=== PATIENT | female | born 1955 | race Caucasian/White ===

== ENCOUNTER 2020-09-17 12:31 | Emergency (ER) | payer MEDICARE, SELFPAY ==
[2020-09-17 12:59] VITALS: BP 160/83; PULSE 61; RESP 16; TEMP 36.6; O2SAT 100; BMI 25.7
--- NOTE | 2020-09-17 13:06 | ECG_ITS ---
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 Measurements Intervals [place] Rate: 61 P: 82 VA: 161 QRS: 52 QRSD: 70 T: 58 QT: 374 QTc: 379 Interpretive Statements SINUS RHYTHM INTERPRETATION BASED ON A DEFAULT AGE OF 40 YEARS No previous ECG available for comparison Electronically Signed On 09-17-2020 20:28:58 CDT by Alejandro Kat M.D. [email or web address]habNav[facility].[employer]/store/NU/[id number] f
[2020-09-17 13:19] VITALS: BP 190/75; PULSE 66; RESP 15; O2SAT 99
--- NOTE | 2020-09-17 13:26 | PC.NURSE ---
ekg done and given to ED provider
[2020-09-17] MEDS: sodium chloride 0.9% 1,000 ML 999 ML IV (14:01)
[2020-09-17 14:09] LABS: Basophils # 0.1 10^3/uL (0.0-0.1); Eosinophils # 0.2 10^3/uL (0.0-0.8); Eosinophils % 2.2 %; Hematocrit 31.2 % (37.0-47.0); Hemoglobin 9.9 g/dL (11.5-15.3); Lymphocytes # 2.6 10^3/uL (0.8-4.8); Lymphocytes % 36.6 %; Mean Corpuscular HGB Conc 31.7 g/dL (30.0-36.0); Mean Corpuscular Hemoglobin 30.7 pg (28.0-34.0); Mean Corpuscular Volume 96.6 fL (81-99); Mean Platelet Volume 12.6 fL (7.4-10.4); Monocytes # 0.3 10^3/uL (0.2-0.9); Monocytes % 4.3 %; Neutrophils # 3.98 10^3/uL (1.8-7.7); Neutrophils % 55.6 %; Nucleated Red Blood Cells % 0 %; Platelet Count 206 10^3/cmm (130-400); Red Blood Count 3.23 10^6/uL (4.1-5.3); Red Cell Distribution Width 12.1 % (12.1-15.1); White Blood Count 7.2 10^3/uL (4.0-10.0)
[2020-09-17 14:15] LABS: Bilirubin Urine Neg (Negative); Blood Urine Neg (Negative); Glucose Urine UA Norm (Normal); Ketones Urine Negative (Negative); Leukocyte Esterase Urine Negative (Negative); Nitrate Urine Negative (Negative); Protein Urine 1+ (Negative); Urine Appearance Clear (CLEAR); Urine Color Yellow (Yellow); Urobilinogen Urine Norm (Negative); pH Urine 5 (5-7)
[2020-09-17 14:16] LABS: Add Urine Culture? No; Add Urine Microscopic? YES; Squamous Epithelial Cell Urine 0-4 /hpf (0-5)
[2020-09-17 14:17] LABS: Alanine Aminotransferase 8 U/L (0-33); Albumin Level 4.6 g/dL (3.5-5.2); Alkaline Phosphatase 118 IU/L (35-105); Anion Gap 16.1 (5-19); Aspartate Amino Transferase 15 U/L (0-32); Blood Urea Nitrogen 38 mg/dL (8-23); Calcium 9.3 mg/dL (8.5-10.5); Carbon Dioxide 25 mmol/L (22-29); Chloride 99 mmol/L (98-107); Globulin 3.2 g/dL (1.3-4.6); Glomerular Filtration Rate 22.3 mL/min (90-130); Glucose 119 mg/dL (65-115); Osmolality Calculated 290 mOsm/kg (285-295); Potassium 5.1 mmol/L (3.5-5.1); Sodium 135 mmol/L (136-145); Total Bilirubin 0.4 mg/dL (0.15-1.2); Total Protein 7.8 g/dL (6.6-8.7)
--- NOTE | 2020-09-17 14:24 | W.ED.RECABL ---
HPI - Recheck/Abnormal Lab/Rx General: Chief Complaint: Recheck/Abnormal Lab/Rx Stated Complaint: PT states critically high potassium Time Seen by Provider: 09/17/20 13:05 History of Present Illness: HPI narrative: The patient is a 65-year-old female with type 2 diabetes, chronic kidney disease, and hypertension. She comes to the ER complaining that she was called for lab work done yesterday with a potassium of 6.3. She says she has had occasional problems with potassium before related to her kidney disease. She does not know her baseline creatinine. She offers no complaints in the ED today and feels completely normal. Review of Systems General: Reports: 10 or more systems reviewed and unremarkable except in HPI and below Const: Denies: fatigue Eyes: Denies: change in vision, blurry vision or eye redness ENMT: Denies: throat pain, swelling of lips/tongue, ear or mastoid pain or nasal congestion Card: Denies: chest pain, palpitations, irregular heart rhythm, edema, dyspnea on exertion or orthopnea Resp: Denies: dyspnea, productive cough or non-productive cough GI: Denies: abdominal pain, diarrhea or GI cramping : Denies: flank pain, difficulty voiding, urinary frequency or urinary urgency Musc: Denies: neck pain, back pain, extremity pain, joint pain, joint redness, limited range of motion or muscle weakness Skin/Breast: Denies: rash, pruritus, erythema, skin pain or skin tenderness Neuro: Denies: headache(s), numbness in extremities, weakness in extremities, sensory changes, difficulty walking, dizziness, confusion or Slurred speech present Psych: Denies: anxiety or depression Endo: Denies: polyuria All/Imm: Denies: urticaria, throat swelling or tongue swelling Physical Exam Const: COMMON NORMALS: no acute distress, average body habitus, patient oriented x3, no limitations, healthy appearing, alert and well nourished GENERAL APPEARANCE: cooperative, comfortable, well kempt and well developed ORIENTATION/CONSCIOUSNESS: Yes awake, Yes oriented to person, Yes oriented to place and Yes oriented to time HENMT: COMMON NORMALS: normocephalic, external ears normal and Normal external nose present HEAD & SCALP: normal to inspection and normocephalic NOSE: Normal external nose present EXTERNAL EAR: Yes external ears normal MOUTH: Normal oral and palatal mucosa present THROAT: posterior oropharynx normal Eye: COMMON NORMALS: Equal, round and reactive pupils present and EOMs intact bilaterally GENERAL EYE: appearance normal, both eyes and all related structures PUPIL: Yes Equal, round and reactive pupils present Neck/C-Spine: COMMON NORMALS: full ROM, no lymphadenopathy, no meningeal signs and no JVD GENERAL: Yes normal visual inspection Lymph: LYMPHATIC: no lymphadenopathy noted Chest: COMMONS NORMALS: normal inspection of the chest and normal palpation of entire chest wall Resp: COMMON NORMALS: normal respiratory effort, No retractions, No use of accessory muscles, clear to auscultation bilaterally and percussion normal EFFORT & INSPECTION: Yes able to speak in complete sentences AUSCULTATION: clear to auscultation bilaterally PERCUSSION: percussion normal Cardio: COMMON NORMALS: no JVD, regular rate, regular rhythm, S1 normal heart sound present, S2 normal heart sound present and Peripheral pulses 2+ throughout RATE: regular rate RHYTHM: regular rhythm HEART SOUNDS: S1 normal heart sound present and S2 normal heart sound present PERIPHERAL PULSES: Peripheral pulses 2+ throughout GI: COMMON NORMALS: Normal to inspection, nondistended, normoactive bowel sounds present, Soft to palpation, non-tender and no masses INSPECTION: Yes normal to inspection PALPATION: Yes Soft to palpation : COMMON NORMALS: Yes no CVA tenderness BLADDER/KIDNEY EXAM: Yes no CVA tenderness Back/Pelvis: COMMON NORMALS: no CVA tenderness, thoracic and lumbar spine normal to inspection, no thoracic nor lumbar tenderness and thoraco-lumbar ROM normal Extremity: COMMON NORMALS: normal to inspection, full ROM, capillary refill normal, no joint enlargement and no pedal edema GENERAL: Yes normal exam except as noted Neuro: COMMON NORMALS: patient oriented x3, CN's II-XII intact bilaterally, moves all extremities, no focal motor deficits, no sensory deficits noted and gait normal SENSORIUM/ORIENTATION: Yes alert, Yes oriented to person, Yes oriented to place and Yes oriented to time MENINGEAL SIGNS: Yes no meningeal signs Psych: COMMON NORMALS: mental status grossly normal, Normal thought process present, cooperative, normal affect and speech normal APPEARANCE: Yes well kempt ATTITUDE: Yes calm SPEECH: Yes normal speech THOUGHT PROCESS: Normal thought process present Skin: COMMON NORMALS: no rashes or lesions noted GENERAL SKIN EXAM: no rashes or lesions noted Course Vital Signs: Vital signs: Vital Signs Temperature 97.9 F 09/17/20 12:59 Pulse Rate 66 09/17/20 13:19 Respiratory Rate 15 09/17/20 13:19 Blood Pressure 190/75 09/17/20 13:19 Pulse Oximetry 99 09/17/20 13:19 MDM - Recheck/Abnormal Lab/Rx MDM Narrative: Medical decision making narrative: The patient came in for reevaluation of outpatient lab work with potassium of 6.3. Her repeat potassium here today is 5.1 which is normal. BUN 38 and creatinine 2.2. She received nearly a liter of IV fluids. Recommend she get it rechecked as she does not know her baseline creatinine and discussed with her primary care physician in a few days. She knows she has chronic kidney disease and follows up regularly. Also chronic anemia and I told her her systolic has been in the 160s here. She does get nervous about being in the hospital. Recommended she check her blood pressures at home and take it to her primary care physician. She says she will do so. ER with worsening symptoms at any time. Lab Data: Labs: Lab Results 09/17/20 09/17/20 09/17/20 Range/Units 13:20 13:45 14:00 WBC 7.2 (4.0-10.0) 10^3/ uL RBC 3.23 L (4.1-5.3) 10^6/u L Hgb 9.9 L (11.5-15.3) g/dL Hct 31.2 L (37.0-47.0) % MCV 96.6 (81-99) fL MCH 30.7 (28.0-34.0) pg MCHC 31.7 (30.0-36.0) g/dL RDW 12.1 (12.1-15.1) % Plt Count 206 (130-400) 10^3/c mm MPV 12.6 H (7.4-10.4) fL Neut % (Auto) 55.6 % Lymph % (Auto) 36.6 % [place] % (Auto) 4.3 % Eos % (Auto) 2.2 % Baso % (Auto) 1.0 % Neut # (Auto) 3.98 (1.8-7.7) 10^3/u L Lymph # (Auto) 2.6 (0.8-4.8) 10^3/u L [place] # (Auto) 0.3 (0.2-0.9) 10^3/u L Eos # (Auto) 0.2 (0.0-0.8) 10^3/u L Baso # (Auto) 0.1 (0.0-0.1) 10^3/u L Nucleated RBC % (a uto) 0 % Nucleated RBCs # 0.0 /100WBC Sodium 135 L (136-145) mmol/L Potassium 5.1 (3.5-5.1) mmol/L Chloride 99 (98-107) mmol/L Carbon Dioxide 25 (22-29) mmol/L Anion Gap 16.1 (5-19) BUN 38 H (8-23) mg/dL Creatinine 2.2 H (0.5-0.9) mg/dL GFR Calculation 22.3 L (90-130) mL/min Glucose 119 H (65-115) mg/dL Calculated Osmolal ity 290 (285-295) mOsm/k g Calcium 9.3 (8.5-10.5) mg/dL Total Bilirubin 0.4 (0.15-1.2) mg/dL AST 15 (0-32) U/L ALT 8 (0-33) U/L Alkaline Phosphata se 118 H (35-105) IU/L Total Protein 7.8 (6.6-8.7) g/dL Albumin 4.6 (3.5-5.2) g/dL Globulin 3.2 (1.3-4.6) g/dL Urine Color Yellow (Yellow) Urine Appearance Clear (CLEAR) Urine pH 5 (5-7) Ur Specific Gravit y 1.010 (1.005-1.030) Urine Protein 1+ H (Negative) Urine Glucose (UA) Norm (Normal) Urine Ketones Negative (Negative) Urine Blood Neg (Negative) Urine Nitrate Negative (Negative) Urine Bilirubin Neg (Negative) Urine Urobilinogen Norm (Negative) mg/dL Ur Leukocyte Genny ase Negative (Negative) Urine RBC None (0-2) /hpf Urine WBC None (0-5) /hpf Ur Squamous Epith Cells 0-4 H (0-5) /hpf Amorphous Sediment Not Reportable Urine Bacteria None (NONE) /hpf Discharge Plan Discharge Patient Disposition: Home Clinical Impression: CKD (chronic kidney disease), Anemia Condition: Stable Discharge Orders: Discharge ED (Routine); Ordered 09/17/20 Ordered By: Chapin Kyle Discharge Diet: Advance as tolerated Discharge Activity: Resume usual activity Patient Instructions: Anemia, Chronic Kidney Disease (ED), Opioid Safety Activity Restrictions/Additional Instructions: Your potassium here in the ER is 5.1 which is normal. It is likely the outpatient lab work you had done yesterday where the potassium was 6.3 was incorrect as the repeat today was normal. Please follow-up with your doctor in a few days to discuss further and also monitor your chronic kidney disease and chronic anemia. Return to the ER with worsening symptoms at any time. Coding Level of Care Code ED C D Area Supervisor for Jessi Lau
[2020-09-17 14:37] VITALS: BP 170/56; PULSE 56; RESP 15; O2SAT 100
[2020-09-17 14:40] VITALS: BP 170/56; PULSE 59; O2SAT 100
== END 2020-09-17 14:40 | disposition home or self-care (01) ==
LOC: ER 15:03
PROVIDERS: Emergency Provider Family Medicine
DX: N18.9 Chronic kidney disease, unspecified (principal); D64.9 Anemia, unspecified; E11.9 Type 2 diabetes mellitus without complications; I10 Essential (primary) hypertension
CPT/HCPCS: 36415; 80053; 81001; 85025; 93005; 96360; 99284; J7030

== ENCOUNTER → 2022-02-17 14:34 | Outpatient (BNVA) | payer MEDICARE, SELFPAY | PROVIDERS: PCP Family Medicine; Visit Provider Family Medicine | DX: E11.9 Type 2 diabetes mellitus without complications (principal); I10 Essential (primary) hypertension; E78.5 Hyperlipidemia, unspecified | CPT/HCPCS: 80053; 80061; 83036; 85025 ==

== ENCOUNTER → 2022-09-28 10:15 | Outpatient (BNVA) | payer MEDICARE, SELFPAY | PROVIDERS: PCP Family Medicine; Visit Provider Family Medicine | DX: E11.9 Type 2 diabetes mellitus without complications (principal); I10 Essential (primary) hypertension; E78.5 Hyperlipidemia, unspecified | CPT/HCPCS: 80053; 80061; 83036; 86140 ==

== ENCOUNTER 2023-04-01 19:10 | Observation (INO) | payer MEDICARE, OTHER, SELFPAY ==
[2023-04-01 19:11] VITALS: BP 235/99; PULSE 66; RESP 18; TEMP 36.7; O2SAT 100
--- NOTE | 2023-04-01 19:22 | ECG_ITS ---
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 Measurements Intervals [place] Rate: 61 P: 89 WI: 150 QRS: 66 QRSD: 78 T: 77 QT: 375 QTc: 378 Interpretive Statements SINUS RHYTHM No previous ECG available for comparison Electronically Signed On 04-03-2023 7:56:21 [employer] by Alejandro Kat M.D. [id number] f
[2023-04-01 19:32] LABS: Glucose Point of Care 248 mg/dL (70-110)
[2023-04-01 19:34] VITALS: PULSE 63; RESP 16; O2SAT 97
--- NOTE | 2023-04-01 19:38 | XRR_ITS ---
PROCEDURE INFORMATION: Exam: XR Chest Exam date and time: 04/01/2023 8:03 PM Age: 67 years old Clinical indication: Other: Hypertensive; Additional info: HTN TECHNIQUE: Imaging protocol: Radiologic exam of the chest. Views: 1 view. COMPARISON: CT angio headneck* [id number] 04/01/2023 8:02 PM FINDINGS: Lungs: Unremarkable. No consolidation. Pleural spaces: Unremarkable. No pleural effusion. No pneumothorax. Heart/Mediastinum: Unremarkable. No cardiomegaly. Bones/joints: Unremarkable. XR/XR chest 1V portable [id number] IMPRESSION: No acute findings.
--- NOTE | 2023-04-01 19:38 | CTR_ITS ---
PROCEDURE INFORMATION: Exam: CTA Head With Contrast, Arteriography Exam date and time: 04/01/2023 8:02 PM Age: 67 years old Clinical indication: Stroke-like symptoms; Speech disturbance; Denis lower extremity weakness; Additional info: Stroke symptoms TECHNIQUE: Imaging protocol: Computed tomographic angiography of the head with contrast. Exam focused on the arteries. 3D rendering (Not supervised by radiologist): MIP and/or 3D reconstructed images were created by the technologist. Radiation optimization: All CT scans at this facility use at least one of these dose optimization techniques: automated exposure control; mA and/or kV adjustment per patient size (includes targeted exams where dose is matched to clinical indication); or iterative reconstruction. Contrast material: OMNI 350; Contrast volume: 100 ml; Contrast route: INTRAVENOUS (IV); COMPARISON: CT head thrombolytic [id number] 04/01/2023 7:58 PM RADIATION DOSE METRICS: Total DLP (mGy-cm): 417.63 FINDINGS: ANTERIOR CIRCULATION: Right internal carotid artery: Right internal carotid atherosclerosis with moderate stenosis distally. Right middle cerebral artery: No occlusion or significant stenosis. No aneurysm. Right anterior cerebral artery: No occlusion or significant stenosis. No aneurysm. Left internal carotid artery: Atherosclerosis left internal carotid with mild stenosis. Left middle cerebral artery: No occlusion or significant stenosis. No aneurysm. Left anterior cerebral artery: No occlusion or significant stenosis. No aneurysm. POSTERIOR CIRCULATION: Right vertebral artery: No occlusion or significant stenosis. No aneurysm. Left vertebral artery: No occlusion or significant stenosis. No aneurysm. Basilar artery: No occlusion or significant stenosis. No aneurysm. Right posterior cerebral artery: No occlusion or significant stenosis. No aneurysm. Left posterior cerebral artery: There is high-grade stenosis of the left RETAIL EVENT ASSISTANT at the P1/P2 segment junction spanning 7 mm in length with patent distal vessel. Left posterior communicating artery: 2 mm probable infundibulum at the left posterior communicating artery origin on series 5, image 203 more likely than small aneurysm. Brain: No definite mass, mass effect, or midline shift. Cerebral ventricles: No ventriculomegaly. Bones/joints: Unremarkable. No acute fracture. Soft tissues: Unremarkable. PROCEDURE INFORMATION: Exam: CTA Neck With Contrast Exam date and time: 04/01/2023 8:02 PM Age: 67 years old Clinical indication: Stroke-like symptoms; Speech disturbance; Denis lower extremity weakness; Additional info: Stroke symptoms TECHNIQUE: Imaging protocol: Computed tomographic angiography of the neck with contrast. Exam focused on the cervical segments of the vasculature. 3D rendering (Not supervised by radiologist): MIP and/or 3D reconstructed images were created by the technologist. Radiation optimization: All CT scans at this facility use at least one of these dose optimization techniques: automated exposure control; mA and/or kV adjustment per patient size (includes targeted exams where dose is matched to clinical indication); or iterative reconstruction. Contrast material: OMNI 350; Contrast volume: 100 ml; Contrast route: INTRAVENOUS (IV); COMPARISON: CT head thrombolytic [id number] 04/01/2023 7:58 PM RADIATION DOSE METRICS: Total DLP (mGy-cm): 417.63 FINDINGS: Right common carotid artery: No stenosis. No dissection or occlusion. Right internal carotid artery: Atherosclerosis proximal right internal carotid artery with 30% stenosis. Right external carotid artery: No occlusion or stenosis of the origin. Left common carotid artery: No stenosis. No dissection or occlusion. Left internal carotid artery: Atherosclerotic changes proximal left internal carotid artery are seen with 30% stenosis. Left external carotid artery: No occlusion or stenosis of the origin. Right vertebral artery: No stenosis. No dissection or occlusion. Left vertebral artery: No stenosis. No dissection or occlusion. Soft tissues: Normal. No significant soft tissue swelling. Bones/joints: No acute fracture. CT/CT angio headneck* [id number] IMPRESSION: 1. There is focal high-grade stenosis of the left RETAIL EVENT ASSISTANT at the P1/P2 segment junction spanning 7 mm in length. 2. There is a 2 mm probable infundibulum more likely than small aneurysm at the left posterior communicating artery origin present. IMPRESSION: No occlusion or significant stenosis. REFERENCES: NASCET CRITERIA. The degree of stenosis in the cervical segment of the internal carotid artery is based on NASCET criteria. Normal is no stenosis. Mild is less than 50% stenosis. Moderate is 50-69% stenosis. Severe is 70% to 99% stenosis. Total occlusion is no detectable patent lumen.
--- NOTE | 2023-04-01 19:38 | CTR_ITS ---
PROCEDURE INFORMATION: Exam: CT Head Without Contrast Exam date and time: 04/01/2023 7:58 PM Age: 67 years old Clinical indication: Stroke-like symptoms; Speech disturbance; Denis lower extremity weakness; Additional info: C/O aphasia and slurred speech with bilateral lower extremity weakness. TECHNIQUE: Imaging protocol: Computed tomography of the head without contrast. Radiation optimization: All CT scans at this facility use at least one of these dose optimization techniques: automated exposure control; mA and/or kV adjustment per patient size (includes targeted exams where dose is matched to clinical indication); or iterative reconstruction. Other technique: STROKE PROTOCOL was implemented. COMPARISON: No relevant prior studies available. RADIATION DOSE METRICS: Total DLP (mGy-cm): 210 FINDINGS: Brain: No acute infarct. No hemorrhage. Involutional changes of the brain, commensurate with age. No mass effect. Chronic lacunar type infarct present in the left kenneth. Cerebral ventricles: No ventriculomegaly. Paranasal sinuses: No significant inflammation. No fluid levels. Mastoid air cells: Visualized mastoid air cells are well aerated. Orbital cavities: Probable left orbital lid weight. Bones/joints: Unremarkable. No acute fracture. Soft tissues: Unremarkable. CT/CT head thrombolytic [id number] IMPRESSION: No acute intracranial abnormality. ASSESSMENT: ASPECTS (Danielle Stroke Program Early CT Score) is 10.
--- NOTE | 2023-04-01 19:40 | W.ED.NEUROSD ---
HPI - Neuro Symptoms/Deficit General: Chief Complaint: Neuro Symptoms/Deficit Stated Complaint: possible stoke Time Seen by Provider: 04/01/23 19:19 History of Present Illness: 67-year-old female evidently with a history of diabetes and hypertension, untreated, presenting with left-sided facial droop dysarthria and trouble swallowing. She awoke with symptoms at 5 AM this morning. She went to bed at 10 PM last night. No significant weakness in extremities. No changes in sensation. Her vision is blurry, but she had an injection in her eye on . She believes that her eye blurriness has more to do with that. No expressive aphasia. She has not been ill recently otherwise Associated symptoms: Deny chest pain, headache(s), nausea or vomiting Review of Systems Const: Denies: fever(s), chills or body aches Eyes: Reports: blurry vision; Denies: change in vision Card: Denies: chest pain or palpitations Resp: Denies: dyspnea, productive cough, non-productive cough or wheezing GI: Denies: abdominal pain, nausea, vomiting, diarrhea or hematochezia : Denies: difficulty voiding Skin/Breast: Denies: rash Neuro: Reports: dizziness and Slurred speech present; Denies: headache(s), numbness in extremities, weakness in extremities, sensory changes or confusion PFSH ED PFSH: Medical History Hyperlipidemia Hypertension Diabetes mellitus type 2, controlled NIH stroke score NIHSS: Level Of Consciousness - 1a: 0 Level Of Consciousness Questions - 1b: Both Correct Level Of Consciousness Commands - 1c: Both Correct Best Gaze - 2: Normal Visual Ortiz - 3: No Visual Loss Facial Palsy - 4: Minor Paralysis Motor Arm Right - 5: No Drift Motor Arm Left - 5: No Drift Motor Leg Right - 6: No Drift Motor Leg Left - 6: No Drift Limb Ataxia - 7: Absent Sensory - 8: Normal Best Language - 9: No Aphasia Dysarthia - 10: Mild/Moderate Dysarthia Extinction And Inattention - 11: 0 Score: Total Score: 2 Physical Exam Const: COMMON NORMALS: alert GENERAL APPEARANCE: ill appearing (mildly) HENMT: COMMON NORMALS: normocephalic, hearing grossly normal bilaterally and Normal external nose present HEAD & SCALP: normocephalic FACE & SINUS: face not symmetric NOSE: Normal external nose present Eye: COMMON NORMALS: Equal, round and reactive pupils present and EOMs intact bilaterally PUPIL: Yes Equal, round and reactive pupils present Neck/C-Spine: GENERAL: Yes trachea midline Chest: CHEST: Yes Symmetrical chest wall rise Resp: COMMON NORMALS: normal respiratory effort, No use of accessory muscles and clear to auscultation bilaterally AUSCULTATION: clear to auscultation bilaterally Cardio: COMMON NORMALS: regular rate and regular rhythm RATE: regular rate RHYTHM: regular rhythm GI: COMMON NORMALS: Normal to inspection, nondistended, normoactive bowel sounds present Neuro: MARCUS COMA SCALE: document GCS findings [place] coma scale eye opening: Spontaneous [place] coma scale verbal response: Orientated Marcus coma scale motor response: Obey commands [place] coma scale total score: 15 SENSORIUM/ORIENTATION: Yes alert CRANIAL NERVES: Yes CN VII (facial) Laterality: left CN VII left: facial droop Course Vital Signs: Vital signs: Vital Signs Temperature 98.0 F 04/01/23 19:11 Pulse Rate 77 04/01/23 21:17 Respiratory Rate 20 H 04/01/23 21:17 Blood Pressure 178/67 04/01/23 21:17 Pulse Oximetry 100 04/01/23 21:17 Oxygen Delivery Me thod Room Air 04/01/23 19:34 MDM - Neuro Symptoms/Deficit Medical Decision Making 67-year-old female with left-sided facial droop, dysarthria, and trouble swallowing. She was very hypertensive on arrival, blood pressure 196/87 following 20 mg of hydralazine. She has untreated hypertension and diabetes. Head CT noncontrast is negative. CTA of the head and neck shows high-grade stenosis of the left OPERATING ROOM SPECIALIST at the P1 P2 segment that is 7 mm long, with a patent distal vessel. I spoke with neurology about this at [facility]. Usually, intervention cannot be well done to the posterior cerebral artery. Their recommendation is dual antiplatelet therapy for 90 days, and continuing stroke workup. Call out to hospitalist. Lab Data 04/01/23 19:27 04/01/23 19:27 Radiology Impressions Chest X-Ray 04/01/23 19:38 IMPRESSION: No acute findings. Head CT 04/01/23 19:38 IMPRESSION: No acute intracranial abnormality. ASSESSMENT: ASPECTS (Danielle Stroke Program Early CT Score) is 10. Head/Neck CTA 04/01/23 19:38 IMPRESSION: 1. There is focal high-grade stenosis of the left OPERATING ROOM SPECIALIST at the P1/P2 segment junction spanning 7 mm in length. 2. There is a 2 mm probable infundibulum more likely than small aneurysm at the left posterior communicating artery origin present. IMPRESSION: No occlusion or significant stenosis. REFERENCES: NASCET CRITERIA. The degree of stenosis in the cervical segment of the internal carotid artery is based on NASCET criteria. Normal is no stenosis. Mild is less than 50% stenosis. Moderate is 50-69% stenosis. Severe is 70% to 99% stenosis. Total occlusion is no detectable patent lumen. Laboratory Results WBC 7.03 10^3/uL (3.29-11.43) 04/01/23 19: RBC 3.47 10^6/uL (3.85-5.65) L 04/01/23 19: Hgb 10.70 g/dL (11.27-16.99) L 04/01/23 19: Hct 33.3 % (36-47) L 04/01/23 19: MCV 96.0 fl (85-98) 04/01/23 19: MCH 30.8 pg (27-33) 04/01/23 19: MCHC 32.1 g/dL (30-55) 04/01/23 19: RDW 12.8 % (12.1-15.1) 04/01/23 19: Plt Count 242 10^3/cmm (157-399) 04/01/23 19: MPV 13.0 fL (7.4-10.4) H 04/01/23 19: Neut % (Auto) 65.7 % 04/01/23 19: Lymph % (Auto) 26.6 % 04/01/23 19: [place] % (Auto) 4.7 % 04/01/23 19: Eos % (Auto) 2.0 % 04/01/23 19: Baso % (Auto) 0.7 % 04/01/23 19: Neut # (Auto) 4.62 10^3/uL (1.8-7.7) 04/01/23 19: Lymph # (Auto) 1.9 10^3/uL (0.8-4.8) 04/01/23 19: Gray # (Auto) 0.3 10^3/uL (0.2-0.9) 04/01/23 19: Eos # (Auto) 0.1 10^3/uL (0.0-0.8) 04/01/23: Baso # (Auto) 0.1 10^3/uL (0.0-0.1) 04/01/23 19: Nucleated RBC % (auto) 0 % 04/01/23: Nucleated RBCs # 0.0 /100WBC 04/01/23: PT 12.80 SECONDS (12.1-14.9) 04/01/23 19: INR 0.93 (0.8-1.2) 04/01/23: APTT 26.5 SECONDS (23.9-36.7) 04/01/23 19: Sodium 142 mmol/L (136-145) 04/01/23 19: Potassium 4.7 mmol/L (3.5-5.1) 04/01/23: Chloride 106 mmol/L (98-107) 04/01/23: Carbon Dioxide 26 mmol/L (22-29) 04/01/23 19: Anion Gap 14.7 (5-19) 04/01/23 19: BUN 28 mg/dL (8-23) H 04/01/23 19: Creatinine 1.6 mg/dL (0.5-0.9) H 04/01/23 19: GFR Calculation 32.1 mL/min (90-130) L 04/01/23 19: Glucose 243 mg/dL (65-115) H 04/01/23 19: POC Glucose 248 mg/dL (70-110) H 04/01/23 19: Calculated Osmolality 308 mOsm/kg (285-295) H 04/01/23 19: Calcium 9.3 mg/dL (8.5-10.5) 04/01/23 19: Total Bilirubin 0.2 mg/dL (0.15-1.2) 04/01/23 19:27 AST 12 U/L (0-32) 04/01/23 19:27 ALT 9 U/L (0-33) 04/01/23 19:27 Alkaline Phosphatase 102 U/L (35-105) 04/01/23 19:27 Total Protein 7.4 g/dL (6.6-8.7) 04/01/23 19:27 Albumin 4.1 g/dL (3.5-5.2) 04/01/23 19:27 Globulin 3.3 g/dL (1.3-4.6) 04/01/23 19:27 All radiology interpretation(s) finalized by discharge Discharge Plan Discharge Patient Disposition: Admitted As Inpatient Admit Provider: Alyson Bourgeois Clinical Impression: Cerebrovascular accident Condition: Stable Coding Level of Care Code ED Computer Graphic Designer for Jessi Lau
[2023-04-01 19:50] LABS: Basophils # 0.1 10^3/uL (0.0-0.1); Basophils % 0.7 %; Eosinophils # 0.1 10^3/uL (0.0-0.8); Hematocrit 33.3 % (36-47); Lymphocytes # 1.9 10^3/uL (0.8-4.8); Lymphocytes % 26.6 %; Mean Corpuscular HGB Conc 32.1 g/dL (30-55); Mean Corpuscular Hemoglobin 30.8 pg (27-33); Monocytes # 0.3 10^3/uL (0.2-0.9); Monocytes % 4.7 %; Neutrophils # 4.62 10^3/uL (1.8-7.7); Neutrophils % 65.7 %; Nucleated Red Blood Cells % 0 %; Platelet Count 242 10^3/cmm (157-399); Red Blood Count 3.47 10^6/uL (3.85-5.65); Red Cell Distribution Width 12.8 % (12.1-15.1); White Blood Count 7.03 10^3/uL (3.29-11.43)
[2023-04-01 19:53] LABS: INR 0.93 (0.8-1.2)
[2023-04-01 19:54] LABS: Partial Thromboplastin Time 26.5 SECONDS (23.9-36.7)
[2023-04-01 20:03] LABS: Alanine Aminotransferase 9 U/L (0-33); Albumin Level 4.1 g/dL (3.5-5.2); Alkaline Phosphatase 102 U/L (35-105); Anion Gap 14.7 (5-19); Aspartate Amino Transferase 12 U/L (0-32); Blood Urea Nitrogen 28 mg/dL (8-23); Calcium 9.3 mg/dL (8.5-10.5); Carbon Dioxide 26 mmol/L (22-29); Chloride 106 mmol/L (98-107); Globulin 3.3 g/dL (1.3-4.6); Glomerular Filtration Rate 32.1 mL/min (90-130); Glucose 243 mg/dL (65-115); Osmolality Calculated 308 mOsm/kg (285-295); Potassium 4.7 mmol/L (3.5-5.1); Sodium 142 mmol/L (136-145); Total Bilirubin 0.2 mg/dL (0.15-1.2); Total Protein 7.4 g/dL (6.6-8.7)
[2023-04-01] MEDS: iohexol 350 mg/mL 500 mL Btl (per mL) IV (20:05)
[2023-04-01] MEDS: hyDRALAzine 20 mg/mL INJ 1 mL IVP (20:59)
[2023-04-01 21:17] VITALS: BP 178/67; PULSE 77; RESP 20; O2SAT 100
[2023-04-01 21:23] LABS: Glucose Point of Care 212 mg/dL (70-110)
[2023-04-01 21:33] LABS: Urine Appearance Clear (CLEAR); Urine Color Colorless (Yellow)
[2023-04-01 21:34] LABS: Add Urine Microscopic? YES; Bilirubin Urine Neg (Negative); Blood Urine Trace (Negative); Glucose Urine UA 2+ (Normal); Ketones Urine 1+ (Negative); Leukocyte Esterase Urine Negative (Negative); Nitrate Urine Negative (Negative); Protein Urine 3+ (Negative); Urobilinogen Urine Norm (Negative); pH Urine 7 (5-7)
[2023-04-01 21:35] LABS: Bacteria Urine TRACE /hpf; Mucus Urine 2+ /hpf; RBC Urine 0-4 /hpf (0-2); Squamous Epithelial Cell Urine 0-4 /hpf (0-5); WBC Urine 0-4 /hpf (0-5)
[2023-04-01 21:36] LABS: Amphetamines Screen Urine Negative (Negative); Barbiturates Screen Urine Negative (Negative); Benzodiazepines Screen Urine Negative (Negative); Cocaine Screen Urine Negative (Negative); Opiate Screen Urine Negative (Negative); PCP Screen Urine Negative (Negative); THC Screen Urine Negative (Negative)
[2023-04-01 21:49] VITALS: BMI 25.9
--- NOTE | 2023-04-01 21:59 | PM.HP ---
Providers/Chief Complaint Admitting Physician: Alyson Bourgeois MD Primary Care Provider: Jonnathan Mckeon MD Chief Complaint: possible stoke History of Present Illness Lesley Hair is a 67 year old female with a past medical history of diabetes and hypertension, declined treatment previously for the same, presented to the emergency room today with left-sided facial droop dysarthria and dysphagia. Patient was in her normal state of health when she went to bed last night, when she woke up at 5 AM is when she first noticed the symptoms. She does report blurring of vision as well, however she has been receiving injectables into her eye recently, I am uncertain of the indication at this present time. They do not appear to be any motor deficits involving her extremities at this present time. She was hypertensive on admission with blood pressure of 196/87 for which she received 20 mg of IV hydralazine. CT of the head was negative for acute intracranial events. CTA of the head and neck showed high-grade stenosis of the left POLITICAL AIDE. Case was discussed by ER physician with neurology at [facility], no intervention recommended given involvement of the posterior system. Recommendation was to start patient on dual antiplatelet therapy and admit for neuro observation. Review of Systems General: Reports: 10 or more systems reviewed and unremarkable except in HPI and below Const: Denies: fever(s), chills or body aches Eyes: Denies: change in vision, blurry vision or photophobia ENMT: Reports: hoarseness; Denies: throat pain, enlarged tonsils, odynophagia or nasal congestion Card: Denies: chest pain, palpitations, irregular heart rhythm, edema, swelling of feet/ankles, lightheadedness, pre-syncope, dyspnea on exertion or orthopnea Resp: Denies: dyspnea, productive cough, non-productive cough, wheezing, stridor, pain on inspiration, change in phlegm color, hemoptysis or chest congestion GI: Denies: abdominal pain, nausea, vomiting, hematemesis, coffee ground emesis, dysphagia, heartburn, diarrhea, constipation, GI cramping, change in stool character, hematochezia or melena : Denies: flank pain, difficulty voiding, dysuria, urinary frequency, urinary urgency, urinary hesitancy or hematuria Musc: Denies: neck pain, back pain, extremity pain, joint swelling, joint warmth or deformity Neuro: Denies: headache(s), numbness in extremities, weakness in extremities, sensory changes, difficulty walking, frequent falls, dizziness, vertigo, behavioral changes, Slurred speech present or seizure-like activity Psych: Denies: anxiety, depression, suicidal ideation or homicidal ideation Endo: Denies: polyuria, polydipsia, tired all the time, cold intolerance or hot flashes [place]/Lymph: Denies: easy bruising or easy bleeding Medications/Allergies Home Medications Medication Instructions Recorded Confirmed Last Taken Type blood sugar diagnostic (OneTouch #50 ea 11/03/22 Unknown Rx Ultra Test strips) Allergies Allergy/AdvReac Type Severity Reaction Status Date / Time No Known Allergies Allergy Verified 04/01/23 19:15 PFSH Acute PFSH: Medical History Hyperlipidemia Hypertension Diabetes mellitus type 2, controlled Vitals/I&O/Wt Last Vital Signs Temp 98.0 F 04/01/23 19:11 Pulse 77 04/01/23 21:17 Resp 20 H 04/01/23 21:17 BP 178/67 04/01/23 21:17 Pulse Ox 100 04/01/23 21:17 O2 Del Method Room Air 04/01/23 19:34 Weight last 48 hrs Weight 80.286 kg Physical Exam Narrative: General: No acute distress, AO x3 HEENT: PERRLA, pupils bilaterally equal and reactive, pallors not present Chest: Normal vesicular breath sounds, no added sounds, equal good air entry bilaterally CVS: S1-S2 regular, no murmurs, no tachycardia, no gallops, no rubs Abdomen: Soft, nontender, no organomegaly, bowel sounds present Neuro: NIH stroke scale of 2 dysarthria, facial asymmetry Data 04/01/23 19:27 04/01/23 19:27 Other Labs: Radiology Impressions Chest X-Ray 04/01/23 19:38 IMPRESSION: No acute findings. Head CT 04/01/23 19:38 IMPRESSION: No acute intracranial abnormality. ASSESSMENT: ASPECTS ([place] Stroke Program Early CT Score) is 10. Head/Neck CTA 04/01/23 19:38 IMPRESSION: 1. There is focal high-grade stenosis of the left POLITICAL AIDE at the P1/P2 segment junction spanning 7 mm in length. 2. There is a 2 mm probable infundibulum more likely than small aneurysm at the left posterior communicating artery origin present. IMPRESSION: No occlusion or significant stenosis. REFERENCES: NASCET CRITERIA. The degree of stenosis in the cervical segment of the internal carotid artery is based on NASCET criteria. Normal is no stenosis. Mild is less than 50% stenosis. Moderate is 50-69% stenosis. Severe is 70% to 99% stenosis. Total occlusion is no detectable patent lumen. Laboratory Results WBC 7.03 10^3/uL (3.29-11.43) 04/01/23 19: RBC 3.47 10^6/uL (3.85-5.65) L 04/01/23: Hgb 10.70 g/dL (11.27-16.99) L 04/01/23: Hct 33.3 % (36-47) L 04/01/23: MCV 96.0 fl (85-98) 04/01/23: MCH 30.8 pg (27-33) 04/01/23: MCHC 32.1 g/dL (30-55) 04/01/23: RDW 12.8 % (12.1-15.1) 04/01/23: Plt Count 242 10^3/cmm (157-399) 04/01/23: MPV 13.0 fL (7.4-10.4) H 04/01/23: Neut % (Auto) 65.7 % 04/01/23: Lymph % (Auto) 26.6 % 04/01/23 19: [place] % (Auto) 4.7 % 04/01/23: Eos % (Auto) 2.0 % 04/01/23: Baso % (Auto) 0.7 % 04/01/23 Neut # (Auto) 4.62 10^3/uL (1.8-7.7) 04/01/23: Lymph # (Auto) 1.9 10^3/uL (0.8-4.8) 04/01/23: [place] # (Auto) 0.3 10^3/uL (0.2-0.9) 04/01/23 19:27 Eos # (Auto) 0.1 10^3/uL (0.0-0.8) 04/01/23 19: Baso # (Auto) 0.1 10^3/uL (0.0-0.1) 04/01/23 19: Nucleated RBC % (auto) 0 % 04/01/23: Nucleated RBCs # 0.0 /100WBC 04/01/23 19: PT 12.80 SECONDS (12.1-14.9) 04/01/23 19: INR 0.93 (0.8-1.2) 04/01/23 19: APTT 26.5 SECONDS (23.9-36.7) 04/01/23 19: Sodium 142 mmol/L (136-145) 04/01/23 19: Potassium 4.7 mmol/L (3.5-5.1) 04/01/23 19: Chloride 106 mmol/L (98-107) 04/01/23 19: Carbon Dioxide 26 mmol/L (22-29) 04/01/23 19: Anion Gap 14.7 (5-19) 04/01/23 19: BUN 28 mg/dL (8-23) H 04/01/23 19: Creatinine 1.6 mg/dL (0.5-0.9) H 04/01/23 19: GFR Calculation 32.1 mL/min (90-130) L 04/01/23 19: Glucose 243 mg/dL (65-115) H 04/01/23 19: POC Glucose 212 mg/dL (70-110) H 04/01/23 21:21 Estimat Average Glucose 209 04/01/23 19: Hemoglobin A1c 8.9 % (4.0-6.0) H 04/01/23 19: Calculated Osmolality 308 mOsm/kg (285-295) H 04/01/23 19: Calcium 9.3 mg/dL (8.5-10.5) 04/01/23 19:27 Total Bilirubin 0.2 mg/dL (0.15-1.2) 04/01/23 19: AST 12 U/L (0-32) 04/01/23 19:27 ALT 9 U/L (0-33) 04/01/23 19: Alkaline Phosphatase 102 U/L (35-105) 04/01/23 19: Total Protein 7.4 g/dL (6.6-8.7) 04/01/23 19: Albumin 4.1 g/dL (3.5-5.2) 04/01/23 19: Globulin 3.3 g/dL (1.3-4.6) 04/01/23 19: Triglycerides 116 mg/dL (0-150) 04/01/23 19: Cholesterol 237 mg/dL (0-200) H 04/01/23: LDL Cholesterol, Calc 140 mg/dL (50-129) H 04/01/23: HDL Cholesterol 74 mg/dL (60-100) 04/01/23: LDL/HDL Ratio 1.89 RATIO (0.00-3.22) 04/01/23: Cholesterol/HDL Ratio 3.20 mg/dL (0.0-4.40) 04/01/23 19: Urine Color Colorless (Yellow) 04/01/23 21:21 Urine Appearance Clear (CLEAR) 04/01/23 21:21 Urine pH 7 (5-7) 04/01/23 21:21 Ur Specific [place] 1.000 (1.005-1.030) L 04/01/23 21: Urine Protein 3+ (Negative) H 04/01/23 21:21 Urine Glucose (UA) 2+ (Normal) H 04/01/23 21:21 Urine Ketones 1+ (Negative) H 04/01/23 21:21 Urine Blood Trace (Negative) H 04/01/23 21:21 Urine Nitrate Negative (Negative) 04/01/23 21:21 Urine Bilirubin Neg (Negative) 04/01/23 21: Urine Urobilinogen Norm mg/dL (Negative) 04/01/23 21:21 Ur Leukocyte Esterase Negative (Negative) 04/01/23 21:21 Urine RBC 0-4 /hpf (0-2) H 04/01/23 21:21 Urine WBC 0-4 /hpf (0-5) H 04/01/23 21:21 Ur Squamous Epith Cells 0-4 /hpf (0-5) H 04/01/23 21:21 Amorphous Sediment Not Reportable 04/01/23 21:21 Urine Bacteria Trace /hpf (NONE) 04/01/23 21:21 Urine Mucus 2+ /hpf 04/01/23 21:21 Urine Opiates Screen Negative ng/mL (Negative) 04/01/23 21:21 Ur Barbiturates Screen Negative ng/mL (Negative) 04/01/23 21:21 Ur Phencyclidine Scrn Negative ng/mL (Negative) 04/01/23 21:21 Ur Amphetamines Screen Negative ng/mL (Negative) 04/01/23 21:21 U Benzodiazepines Scrn Negative ng/mL (Negative) 04/01/23 21:21 Urine Cocaine Screen Negative ng/mL (Negative) 04/01/23 21:21 U Marijuana (THC) Screen Negative ng/mL (Negative) 04/01/23 21:21 A&P Assessment and plan (1) Cerebrovascular accident: Admit the patient to [facility] for close neuro monitoring She is not a tPA candidate due to onset of symptoms earlier this morning. Continue telemetry monitoring on the unit to evaluate for underlying arrhythmias. CT head unremarkable CTA head and neck focal high-grade stenosis of the left POLITICAL AIDE at the P1/P2 segment junction spanning 7 mm in length. Echocardiogram ordered and pending Start aspirin 81 mg daily, Plavix 75 mg daily, Atorvastatin 40 mg daily Check HbA1c and lipid panel for restratification Holding further doses of antihypertensives to allow for permissive hypertension PT OT speech therapy assessment Plan DVT prophylaxis: SCDs only, overall low risk Full code Attestations Medical Necessity Statement*: Greater than 2 midnight stay is anticipated Coding Level of Care Code Acute Code for Chg Fwd Moderate MDM includes number and complexity of problems actively addressed during encounter, amount and/or complexity of data reviewed/ordered and described risk of complication, morbidity or mortality of management as documented Diagnoses Cerebrovascular accident I63.9
[2023-04-01 22:19] LABS: Cholesterol 237 mg/dL (0-200); HDL Cholesterol 74 mg/dL (60-100); LDL Cholesterol Calculated 140 mg/dL (50-129); LDL HDL Ratio 1.89 RATIO (0.00-3.22); Triglycerides 116 mg/dL (0-150)
[2023-04-01 22:20] LABS: Estmated Average Glucose 209; Hemoglobin A1C 8.9 % (4.0-6.0)
[2023-04-01] MEDS: atorvastatin 40 mg Tablet PO (22:26)
[2023-04-01 23:11] VITALS: BP 167/67; PULSE 76; RESP 16; TEMP 36.6; O2SAT 99
[2023-04-02 00:25] VITALS: BP 156/64; PULSE 70; RESP 16; TEMP 36.7; O2SAT 98
[2023-04-02 02:25] VITALS: BP 158/69; PULSE 67; RESP 15; TEMP 36.6; O2SAT 97
[2023-04-02 03:25] VITALS: BP 155/69; PULSE 65; RESP 16; TEMP 37.1; O2SAT 96
[2023-04-02 05:43] VITALS: BMI 25.9
[2023-04-02 06:25] VITALS: BP 152/69; PULSE 67; RESP 16; TEMP 37.2; O2SAT 96
[2023-04-02] MEDS: clopidogrel 75 mg Tablet PO (08:55)
[2023-04-02] MEDS: aspirin 81 mg EC Tablet PO (08:55)
[2023-04-02 11:00] VITALS: BP 181/77; PULSE 66; RESP 16; TEMP 37; O2SAT 97
--- NOTE | 2023-04-02 11:25 | PM.DCS ---
Discharge Providers Date of Admission: 04/01/23 21:12 Date of Discharge: April 02, 2023 Attending Provider at Admission: Alyson Bourgeois MD Attending Provider at Discharge: Abdulkadir Soto MD Primary Care Provider: Jonnathan Mckeon MD Diagnoses at Discharge Discharge Diagnosis (1) Cerebrovascular accident: Status: Acute Reason for Visit Reason for Visit: possible stoke Hospital Course Hospital Course 67-year female who presented for dysarthria, who was diagnosed with acute CVA, is diabetic, chronic kidney disease, hypertensive I have added amlodipine to her losartan, added Januvia I will ask her to follow-up with her PCP if she required insulin if hemoglobin A1c gets more than 9, she was considered not a tPA candidate patient slurred speech has improved to some extent, I have not seen any significant deficits of upper or lower extremities, I will discharge her after PT OT and ST, echo unremarkable. cta head and neck IMPRESSION: 1. There is focal high-grade stenosis of the left [employer] at the P1/P2 segment junction spanning 7 mm in length. 2. There is a 2 mm probable infundibulum more likely than small aneurysm at the left posterior communicating artery origin present Physical Exam Narrative: nih 1 No upper or lower extremity weakness S1, S2 Hemodynamically stable Pleasant and healthy Family at the bedside Mild slurring of speech Discharge Data Studies Completed and Pending Completed Studies During Hospitalization Category Date Time Status CT angio headneck* [id number] Stat Cat Scan 04/01/23 19:[address] head thrombolytic [id number] Stat Cat Scan 04/01/23 19:38 Completed XR chest 1V portable [id number] Stat Exams 04/01/23 19:38 Completed CV. echo complete* [id number] Routine Ultrasound 04/02/23 21:55 Completed Radiology Impressions Chest X-Ray 04/01/23 19:38 IMPRESSION: No acute findings. Head CT 04/01/23 19:38 IMPRESSION: No acute intracranial abnormality. ASSESSMENT: ASPECTS ([place] Stroke Program Early CT Score) is 10. Head/Neck CTA 04/01/23 19:38 IMPRESSION: 1. There is focal high-grade stenosis of the left [employer] at the P1/P2 segment junction spanning 7 mm in length. 2. There is a 2 mm probable infundibulum more likely than small aneurysm at the left posterior communicating artery origin present. IMPRESSION: No occlusion or significant stenosis. REFERENCES: NASCET CRITERIA. The degree of stenosis in the cervical segment of the internal carotid artery is based on NASCET criteria. Normal is no stenosis. Mild is less than 50% stenosis. Moderate is 50-69% stenosis. Severe is 70% to 99% stenosis. Total occlusion is no detectable patent lumen. Laboratory Results WBC 7.03 10^3/uL (3.29-11.43) 04/01/23: RBC 3.47 10^6/uL (3.85-5.65) L 04/01/23: Hgb 10.70 g/dL (11.27-16.99) L 04/01/23: Hct 33.3 % (36-47) L 04/01/23 MCV 96.0 fl (85-98) 04/01/23: MCH 30.8 pg (27-33) 04/01/23: MCHC 32.1 g/dL (30-55) 04/01/23: RDW 12.8 % (12.1-15.1) 04/01/23 Plt Count 242 10^3/cmm (157-399) 04/01/23 MPV 13.0 fL (7.4-10.4) H 04/01/23 Neut % (Auto) 65.7 % 04/01/23: Lymph % (Auto) 26.6 % 04/01/23: [place] % (Auto) 4.7 % 04/01/23: Eos % (Auto) 2.0 % 04/01/23 Baso % (Auto) 0.7 % 04/01/23 Neut # (Auto) 4.62 10^3/uL (1.8-7.7) 04/01/23 Lymph # (Auto) 1.9 10^3/uL (0.8-4.8) 04/01/23 [place] # (Auto) 0.3 10^3/uL (0.2-0.9) 04/01/23 Eos # (Auto) 0.1 10^3/uL (0.0-0.8) 04/01/23 19: Baso # (Auto) 0.1 10^3/uL (0.0-0.1) 04/01/23 19: Nucleated RBC % (auto) 0 % 04/01/23 19: Nucleated RBCs # 0.0 /100WBC 04/01/23 19: PT 12.80 SECONDS (12.1-14.9) 04/01/23 19: INR 0.93 (0.8-1.2) 04/01/23 19: APTT 26.5 SECONDS (23.9-36.7) 04/01/23 19: Sodium 142 mmol/L (136-145) 04/01/23: Potassium 4.7 mmol/L (3.5-5.1) 04/01/23: Chloride 106 mmol/L (98-107) 04/01/23: Carbon Dioxide 26 mmol/L (22-29) 04/01/23: Anion Gap 14.7 (5-19) 04/01/23 19: BUN 28 mg/dL (8-23) H 04/01/23 19: Creatinine 1.6 mg/dL (0.5-0.9) H 04/01/23: GFR Calculation 32.1 mL/min (90-130) L 04/01/23 19: Glucose 243 mg/dL (65-115) H 04/01/23 19: POC Glucose 212 mg/dL (70-110) H 04/01/23 21:21 Estimat Average Glucose 209 04/01/23 19: Hemoglobin A1c 8.9 % (4.0-6.0) H 04/01/23 19: Calculated Osmolality 308 mOsm/kg (285-295) H 04/01/23: Calcium 9.3 mg/dL (8.5-10.5) 04/01/23: Total Bilirubin 0.2 mg/dL (0.15-1.2) 04/01/23 19: AST 12 U/L (0-32) 04/01/23: ALT 9 U/L (0-33) 04/01/23 19: Alkaline Phosphatase 102 U/L (35-105) 04/01/23 19: Total Protein 7.4 g/dL (6.6-8.7) 04/01/23 19: Albumin 4.1 g/dL (3.5-5.2) 04/01/23 19: Globulin 3.3 g/dL (1.3-4.6) 04/01/23 19: Triglycerides 116 mg/dL (0-150) 04/01/23: Cholesterol 237 mg/dL (0-200) H 04/01/23 19: LDL Cholesterol, Calc 140 mg/dL (50-129) H 04/01/23: HDL Cholesterol 74 mg/dL (60-100) 04/01/23: LDL/HDL Ratio 1.89 RATIO (0.00-3.22) 04/01/23: Cholesterol/HDL Ratio 3.20 mg/dL (0.0-4.40) 04/01/23: Urine Color Colorless (Yellow) 04/01/23 21: Urine Appearance Clear (CLEAR) 04/01/23 21: Urine pH 7 (5-7) 04/01/23 21: Ur Specific [place] 1.000 (1.005-1.030) L 04/01/23 21: Urine Protein 3+ (Negative) H 04/01/23 21: Urine Glucose (UA) 2+ (Normal) H 04/01/23 21: Urine Ketones 1+ (Negative) H 04/01/23 21:21 Urine Blood Trace (Negative) H 04/01/23 21: Urine Nitrate Negative (Negative) 04/01/23 21: Urine Bilirubin Neg (Negative) 04/01/23 21: Urine Urobilinogen Norm mg/dL (Negative) 04/01/23 21:21 Ur Leukocyte Esterase Negative (Negative) 04/01/23 21: Urine RBC 0-4 /hpf (0-2) H 04/01/23 21:21 Urine WBC 0-4 /hpf (0-5) H 04/01/23 21:21 Ur Squamous Epith Cells 0-4 /hpf (0-5) H 04/01/23 21:21 Amorphous Sediment Not Reportable 04/01/23 21: Urine Bacteria Trace /hpf (NONE) 04/01/23 21:21 Urine Mucus 2+ /hpf 04/01/23 21:21 Urine Opiates Screen Negative ng/mL (Negative) 04/01/23 21:21 Ur Barbiturates Screen Negative ng/mL (Negative) 04/01/23 21:21 Ur Phencyclidine Scrn Negative ng/mL (Negative) 04/01/23 21:21 Ur Amphetamines Screen Negative ng/mL (Negative) 04/01/23 21:21 U Benzodiazepines Scrn Negative ng/mL (Negative) 04/01/23 21:21 Urine Cocaine Screen Negative ng/mL (Negative) 04/01/23 21:21 U Marijuana (THC) Screen Negative ng/mL (Negative) 04/01/23 21:21 Vitals Last Vital Signs Temp 99.0 F 04/02/23 06:25 Pulse 67 04/02/23 06:25 Resp 16 04/02/23 06:25 BP 152/69 04/02/23 06:25 Pulse Ox 96 04/02/23 06:25 O2 Del Method Room Air 04/02/23 06:25 Discharge Plan Discharge Patient Disposition: Home Condition: Stable Prescriptions: New Januvia 50 mg tablet 50 mg PO DAILY Qty: 60 0RF aspirin 81 mg Tablet,Delayed Release (Dr/Ec) 81 mg PO DAILY Qty: 90 3RF atorvastatin 40 mg Tablet 40 mg PO BEDTIME Qty: 90 0RF clopidogrel 75 mg Tablet 75 mg PO DAILY Qty: 20 0RF amlodipine 10 mg tablet 10 mg PO DAILY Qty: 60 0RF No Action (DME) OneTouch Ultra Test Strip See Rx Instructions .Route Qty: 50 5RF Rx Instructions: As directed Discharge Orders: Discharge Order (Routine); Ordered 04/02/23 Ordered By: Abdulkadir Soto Referrals: Jonnathan Mckeon MD [Primary Care Provider] - 4-7 days Discharge Diet: GI Soft Patient Instructions: Opioid Safety Discharge Attestations Time Spent in Discharge Care*: greater than 30 min Quality Metrics Clinical Quality Measures [ No reported AMI, CVA or VTE this stay] Coding Level of Care Code Acute Code for g Fwd Diagnoses Cerebrovascular accident I63.9
[2023-04-02 13:25] VITALS: BP 181/77; PULSE 66; RESP 16; TEMP 37; O2SAT 97
--- NOTE | 2023-04-02 13:30 | PC.NURSE ---
patient and family verbalized understanding of discharge instructions, home medications, and follow up appointments.
--- NOTE | 2023-04-02 21:55 | USCV_ITS ---
ReginaldoLesley Age: 67 Gender: F : 1955 Exam Date: 04/02/2023 08:05 Ordering Phys: Alyson Bourgeois MD Technologist: Carl Ott [place]am [place] [facility] [place]: stroke BP: 152 / 69 HR: 68 Rhythm: Sinus Technical Quality: Adequate MEASUREMENTS (Male / Female) Normal Values 2D ECHO LVOT Diameter 2.0 cm LV Ejection Fraction MOD 2C 67.9 % LV Ejection Fraction 2C AL 67.6 % LA Diameter 3.4 cm LA Width 3.6 cm LA Height 4.6 cm RA Width 4.1 cm RA Height 4.8 cm Aorta at Sinotubular Diameter 2.2 cm IVC Diameter 1.8 cm M-MODE Aortic Annulus Diameter 2.9 cm LA Ao Ratio MM 1.1 MV E Point Septal Separation 0.5 cm DOPPLER AV Peak Velocity 126.3 cm/s LVOT Peak Velocity 117.0 cm/s AV Area Cont Eq vti 3.1 cm squared AV Area Cont Eq pk 2.9 cm squared MV Peak Velocity 147.0 cm/s MV Area PHT 3.7 cm squared Mitral E to A Ratio 0.9 MV E' Velocity 49.0 cm/s Mitral E to MV E' Ratio 10.2 Mitral E to LV E' Lateral Ratio 8.0 Mitral E to LV E' Septal Ratio 14.0 TR Peak Velocity 293.5 cm/s TR Peak Gradient 34.5 mmHg TR Mean Velocity 234.2 cm/s TR Mean Gradient 22.7 mmHg TR Velocity Time Integral 82.4 cm Right Atrial Pressure 3.0 mmHg Pulmonary Artery Systolic Pressu 37.5 mmHg PV Peak Velocity 88.7 cm/s RV Acceleration Time 0.2 s RV Ejection Time 0.3 s RV AcT/ET 0.4 FINDINGS Left Ventricle Normal left ventricular size, systolic function and wall thickness ejection fraction estimated to be about 65%, with no regional wall motion abnormalities. Normal left ventricular wall thickness. Normal diastolic filling pattern. Right Ventricle The right ventricle is normal in size and function. Right Atrium The right atrium is normal in size. Left Atrium The left atrium is normal in size. Mitral Valve Structurally normal mitral valve without significant stenosis or prolapse. There is mild mitral regurgitation. Aortic Valve Structurally normal aortic valve without significant sclerosis or stenosis. There is no aortic regurgitation. Tricuspid Valve Structurally normal tricuspid valve without significant stenosis. There is mild regurgitation. Pulmonary artery systolic pressure is normal. Pulmonic Valve Structurally normal pulmonic valve without significant stenosis. There is no pulmonic regurgitation. Pericardium Normal pericardium without effusion. Aorta Normal ascending aorta dimension. IVC The inferior vena cava appears normal. CONCLUSIONS Nelda Ochoa MD (Electronically Signed) Final Date: 02 April 2023 09:55 S
== END 2023-04-02 13:26 | disposition home or self-care (01) ==
LOC: ER 20:58 → MEDSURG 21:36
PROVIDERS: Admitting Provider Student in an Organized Health Care Education/Training Program; Emergency Provider Emergency Medicine; PCP Family Medicine; Visit Provider Internal Medicine
DX: I63.9 Cerebral infarction, unspecified (principal); R29.702 NIHSS score 2; E11.22 Type 2 diabetes mellitus with diabetic chronic kidney disease; I12.9 Hypertensive chronic kidney disease with stage 1 through stage 4 chronic kidney disease, or unspecified chronic kidney disease; N18.9 Chronic kidney disease, unspecified; E78.5 Hyperlipidemia, unspecified
CPT/HCPCS: 36416; 70450; 70496; 70498; 71045; 80053; 80061; 80306; 81001; 82962; 83036; 85025; 85610; 85730; 92610; 93005; 93306; 96374; 96375; 97110; 97161; 97166; 99285; G0378; J0360; Q9967

== ENCOUNTER → 2023-09-14 13:10 | Outpatient (BNVA) | payer MEDICARE, OTHER, SELFPAY | PROVIDERS: PCP Family Medicine; Visit Provider Family Medicine | DX: I10 Essential (primary) hypertension (principal); E78.5 Hyperlipidemia, unspecified; E11.9 Type 2 diabetes mellitus without complications | CPT/HCPCS: 80053; 80061; 83036; 85025 ==

== ENCOUNTER → 2023-11-21 15:07 | Outpatient (BNVA) | payer MEDICARE, OTHER, SELFPAY | PROVIDERS: PCP Family Medicine; Visit Provider Family Medicine | DX: I63.9 Cerebral infarction, unspecified (principal); I10 Essential (primary) hypertension; E11.9 Type 2 diabetes mellitus without complications | CPT/HCPCS: 80048; 83036 ==

== ENCOUNTER → 2024-08-27 15:59 | Outpatient (BNVA) | payer BC, SELFPAY | PROVIDERS: PCP Family Medicine; Visit Provider Family Medicine | DX: I10 Essential (primary) hypertension (principal); E11.9 Type 2 diabetes mellitus without complications; E78.5 Hyperlipidemia, unspecified; D64.9 Anemia, unspecified; I63.9 Cerebral infarction, unspecified | CPT/HCPCS: 80053; 80061; 82043; 82607; 83036; 83540; 85025 ==

== ENCOUNTER → 2024-11-25 10:27 | Outpatient (BNVA) | payer BC, SELFPAY | PROVIDERS: PCP Family Medicine; Visit Provider Family Medicine | DX: E11.65 Type 2 diabetes mellitus with hyperglycemia (principal); I10 Essential (primary) hypertension; N18.4 Chronic kidney disease, stage 4 (severe) | CPT/HCPCS: 80048; 83036; 84439; 84443 ==

== ENCOUNTER 2024-12-09 09:26 | Outpatient (CLI) | payer BC, SELFPAY ==
--- NOTE | 2024-12-09 10:00 | US_ITS ---
WS: [id number] RENAL ULTRASOUND HISTORY: ckd 4 COMPARISON: None available. TECHNIQUE: 2-D and color Doppler imaging of the kidney submitted. Right kidney: 9.1 cm x 3.7 cm x 3.9 cm. Cortex: 0.8 cm Normal size kidney with mild cortical thinning. No mass or obstruction. Left kidney: 9.3 cm x 4.2 cm x 4.3 cm. Cortex: 1.0 cm Mild increased echogenicity. Minimal cortical thinning. No obstruction. No solid mass. Aorta: Normal. Urinary Bladder: Normal distention. US/US renal BI* [id number] IMPRESSION: 1. Normal size kidneys with no obstruction. 2. Mild bilateral cortical thinning. Increased echogenicity LEFT kidney second rhonda to medical renal disease.
== END 2024-12-09 09:27 | disposition home or self-care (01) ==
LOC: RAD 09:26
PROVIDERS: PCP Family Medicine; Visit Provider Family Medicine
DX: N18.4 Chronic kidney disease, stage 4 (severe) (principal); N28.89 Other specified disorders of kidney and ureter
CPT/HCPCS: 76770